=== PATIENT | male | born 1995 | race Caucasian/White ===

== ENCOUNTER 2019-01-05 20:31 | Emergency (ER) | payer SELFPAY ==
[~2019-01-05] VITALS: Ht 172.7 cm; Wt 72.7 kg
[2019-01-05 21:18] VITALS: BP 140/88
== END 2019-01-05 21:49 | disposition home or self-care (01) ==
LOC: EMS 20:32
DX: S16.1XXA Strain of muscle, fascia and tendon at neck level, initial encounter (principal); R51 Headache; F17.210 Nicotine dependence, cigarettes, uncomplicated; F12.90 Cannabis use, unspecified, uncomplicated; W18.09XA Striking against other object with subsequent fall, initial encounter; Y93.89 Activity, other specified; Y92.89 Other specified places as the place of occurrence of the external cause; Y99.8 Other external cause status
CPT/HCPCS: 99406

== ENCOUNTER 2021-10-19 18:36 | Emergency (ER) | payer MEDICAID ==
[~2021-10-19] VITALS: Ht 175.3 cm; Wt 90.9 kg
[2021-10-19 18:45] VITALS: BP 136/72
[2021-10-19] MEDS ORDERED: PROPARACAINE HCL 0.5% 15 ML OPHTHALMIC SOLUTION OS ONE (21:45)
[2021-10-19] MEDS ORDERED: FLUORESCEIN SODIUM 1 MG STRIP OS ONE (21:45)
== END 2021-10-19 22:50 | disposition home or self-care (01) ==
LOC: EMS 18:36
DX: H53.142 Visual discomfort, left eye (principal); F17.210 Nicotine dependence, cigarettes, uncomplicated; F12.90 Cannabis use, unspecified, uncomplicated
CPT/HCPCS: 99283

== ENCOUNTER 2022-03-27 16:50 | Emergency (ER) | payer MEDICAID ==
[~2022-03-27] VITALS: Ht 177.8 cm; Wt 95.5 kg
[2022-03-27 17:41] VITALS: BP 145/79
[2022-03-27] MEDS ORDERED: CIPR500T10 PO (18:04)
[2022-03-27] MEDS ORDERED: IBUP-2070 PO (18:07)
[2022-03-27] MEDS: PERTUSS(ACELL),DIPH,TET VAC/PF 0.5 ML SYRINGE IM. ONE (18:11)
== END 2022-03-27 18:24 | disposition home or self-care (01) ==
LOC: EMS 16:50
DX: S91.331A Puncture wound without foreign body, right foot, initial encounter (principal); W45.0XXA Nail entering through skin, initial encounter; Y93.01 Activity, walking, marching and hiking; Y92.89 Other specified places as the place of occurrence of the external cause; Y99.8 Other external cause status
CPT/HCPCS: 90471; 90715; 99283

== ENCOUNTER 2024-07-08 22:09 | Emergency (ER) | payer MEDICAID ==
[~2024-07-08] VITALS: Ht 175.3 cm; Wt 100.0 kg
[2024-07-08 22:17] VITALS: BP 142/94; TEMP 98.4
[2024-07-09 04:50] VITALS: PULSE 89; RESP 16; O2SAT 98
== END 2024-07-09 04:52 | disposition home or self-care (01) ==
LOC: EMS 22:10
DX: T59.91XA Toxic effect of unspecified gases, fumes and vapors, accidental (unintentional), initial encounter (principal); Y92.89 Other specified places as the place of occurrence of the external cause
CPT/HCPCS: 71045; 99283